=== PATIENT | female | born 1955 | race African-American/Black ===

== ENCOUNTER 2017-10-26 21:49 | Emergency (ER) | payer OTHER ==
[~2017-10-26] VITALS: Ht 167.6 cm; Wt 72.6 kg
--- NOTE | 2017-10-26 22:09 | PHYS DOC ---
Past Medical History Past Medical History: Hypertension, Stroke Additional Past Medical Histor: Neuropathy to left arm Past Surgical History: Additional Information: None Alcohol Use: None Drug Use: None Adult General Chief Complaint Chief Complaint: CHEST PAIN HPI HPI 62-year-old female presents with report of acute on chronic left arm pain which shoots from her left shoulder/upper thoracic back to her hand which has been ongoing for 3 months status post "stroke". Patient was apparently diagnosed with neuropathic pain. Reports most recently pain has become worse. Denies any trauma. Denies chest pain. Denies shortness of air. Denies numbness. Denies pleuritic pain. Denies arm swelling or redness. Review of Systems Review of Systems Constitutional: Denies fever or chills [] Eyes: Denies change in visual acuity, redness, or eye pain [] HENT: Denies nasal congestion or sore throat [] Respiratory: Denies cough or shortness of breath [] Cardiovascular: Denies chest pain or palpitations GI: Denies abdominal pain, nausea, vomiting, or diarrhea [] : Denies dysuria or hematuria [] Musculoskeletal: Reports upper thoracic back pain and shooting left arm pain Integument: Denies rash or skin lesions [] Neurologic: Denies headache or sensory changes [] Complete systems were reviewed and found to be within normal limits, except as documented in this note. Current Medications Current Medications Current Medications Medications (Trade) Dose Ordered Sig/Celio Start Time Stop Time Status Last Admin Dose Admin Acetaminophen/ Hydrocodone Bitart (Lortab 5/325) 1 tab 1X ONCE 10/27/17 00:30 10/27/17 00:31 DC 10/27/17 00:27 1 TAB Aspirin (Jaime Aspirin) 325 mg 1X ONCE 10/26/17 23:00 10/26/17 23:01 DC 10/26/17 22:36 325 MG Fentanyl Citrate (Fentanyl 2ml Vial) 50 mcg 1X ONCE 10/26/17 23:00 10/26/17 23:01 DC 10/26/17 22:37 50 MCG Orphenadrine Citrate (Norflex) 60 mg 1X ONCE 10/26/17 23:00 10/26/17 23:01 DC 10/26/17 22:36 60 MG Allergies Allergies Allergies Coded Allergies Type Severity Reaction Last Updated Verified No Known Drug Allergies 10/26/17 No Physical Exam Physical Exam Constitutional: Well developed, well nourished, no acute distress, non-toxic appearance. [] HENT: Normocephalic, atraumatic, oropharynx moist Eyes: PERRL, EOMI, conjunctiva normal, no discharge. [] Neck: Normal range of motion, no midline tenderness, supple, no meningeal signs Cardiovascular: Heart rate regular rhythm, capillary refill less than 2 seconds Lungs & Thorax: Bilateral breath sounds clear to auscultation [] Abdomen: Soft, no tenderness] Skin: Warm, dry, no erythema, no rash. [] Back: Left paraspinal thoracic tenderness to palpation, no midline spinal tenderness noted. [] Extremities: No edema, pain to left arm with range of motion and light touch Neurologic: Alert and oriented X 3, normal motor function, normal sensory function, no focal deficits noted. [] Psychologic: Affect normal, judgement normal, mood normal. [] Current Patient Data Vital Signs Vital Signs Date Time Temp Pulse Resp B/P (MAP) Pulse Ox O2 Delivery O2 Flow Rate FiO2 10/27/17 00:30 80 18 157/82 (107) 98 Room Air 10/26/17 22:21 98.6 98.6 Lab Values Laboratory Tests Test 10/26/17 22:40 White Blood Count 10.4 x10^3/uL (4.0-11.0) Red Blood Count 4.16 x10^6/uL (3.50-5.40) Hemoglobin 13.2 g/dL (12.0-15.5) Hematocrit 38.0 % (36.0-47.0) Mean Corpuscular Volume 91 fL (79-100) Mean Corpuscular Hemoglobin 32 pg (25-35) Mean Corpuscular Hemoglobin Concent 35 g/dL (31-37) Red Cell Distribution Width 16.6 % (11.5-14.5) H Platelet Count 421 x10^3/uL (140-400) H Neutrophils (%) (Auto) 61 % (31-73) Lymphocytes (%) (Auto) 20 % (24-48) L Monocytes (%) (Auto) 12 % (0-9) H Eosinophils (%) (Auto) 6 % (0-3) H Basophils (%) (Auto) 1 % (0-3) Neutrophils # (Auto) 6.3 x10^3uL (1.8-7.7) Lymphocytes # (Auto) 2.1 x10^3/uL (1.0-4.8) Monocytes # (Auto) 1.2 x10^3/uL (0.0-1.1) H Eosinophils # (Auto) 0.6 x10^3/uL (0.0-0.7) Basophils # (Auto) 0.1 x10^3/uL (0.0-0.2) Prothrombin Time 12.5 SEC (11.7-14.0) Prothrombin Time INR 1.0 (0.8-1.1) PTT 29 SEC (24-38) Sodium Level 141 mmol/L (136-145) Potassium Level 3.7 mmol/L (3.5-5.1) Chloride Level 107 mmol/L (98-107) Carbon Dioxide Level 27 mmol/L (21-32) Anion Gap 7 (6-14) Blood Urea Nitrogen 24 mg/dL (7-20) H Creatinine 0.7 mg/dL (0.6-1.0) Estimated GFR (Cockcroft-Gault) 103.3 BUN/Creatinine Ratio 34 (6-20) H Glucose Level 122 mg/dL (70-99) H Calcium Level 10.4 mg/dL (8.5-10.1) H Magnesium Level 2.2 mg/dL (1.8-2.4) Total Bilirubin 0.3 mg/dL (0.2-1.0) Aspartate Amino Transferase (AST) 29 U/L (15-37) Alanine Aminotransferase (ALT) 48 U/L (14-59) Alkaline Phosphatase 113 U/L (46-116) Creatine Kinase 75 U/L (26-192) Creatine Kinase MB (Mass) 0.9 ng/mL (0.0-3.6) Creatine Kinase MB Relative Index 1.2 % (0-4) Troponin I Quantitative < 0.017 ng/mL (0.000-0.055) JH-Dyj-W-Type Natriuretic Peptide 137 pg/mL (0-124) H Total Protein 7.2 g/dL (6.4-8.2) Albumin 3.4 g/dL (3.4-5.0) Albumin/Globulin Ratio 0.9 (1.0-1.7) L Lipase 157 U/L (73-393) Laboratory Tests 10/26/17 22:40 Laboratory Tests 10/26/17 22:40 EKG EKG @2155 on 10/26/17: NSR at 82bpm, nonspecific t wave inversion I, aVL, V3-V6. NO ST elevation. Radiology/Procedures Radiology/Procedures CXR single view: (preliminary interpretation by ED physician) No acute process noted. Course & Med Decision Making Course & Med Decision Making Pertinent Labs and Imaging studies reviewed. (See chart for details) Patient presents with history of present illness and physical exam consistent for acute on chronic neuropathic pain to left arm. No obvious deformity noted. No history of trauma. Patient with some cardiac risk factors. EKG stable. Labs obtained and posted to chart. Initial troponin within normal limits. Chest x- ray clear. Pain addressed. Patient stable for discharge with outpatient follow- up with PCP. Discussed findings and plan with patient and family, who acknowledge understanding and agreement. Dragon Disclaimer Dragon Disclaimer This electronic medical record was generated, in whole or in part, using a voice recognition dictation system. Departure Departure Impression: Primary Impression: Left arm pain Additional Impression: Neuropathy Disposition: 01 HOME, SELF-CARE Condition: STABLE Referrals: SOPHIA RODRÍGUEZ MD Patient Instructions: Pain, Neuropathic Scripts Hydrocodone/Apap 5-325 (NORCO 5-325 TABLET) 1 Each Tablet 1 TAB PO PRN Q6HRS PRN for PAIN, #10 TAB 0 Refills Prov: JAGRUTI SHABAZZ DO 10/26/17 Orphenadrine Citrate (ORPHENADRINE CITRATE) 100 Mg Tablet.er 1 TAB PO BID PRN for MUSCLE PAIN, #14 TAB 0 Refills Prov: JAGRUTI SHABAZZ DO 10/26/17 Problem Qualifiers JAGRUTI SHABAZZ DO Oct 26, 2017 22:09
[2017-10-26 22:48] LABS: BASO # 0.1 x10^3/uL (0.0-0.2); BASO % 1 % (0-3); EOS # 0.6 x10^3/uL (0.0-0.7); EOS % 6 % (0-3); HEMOGLOBIN 13.2 g/dL (12.0-15.5); LYMPH # 2.1 x10^3/uL (1.0-4.8); LYMPH % 20 % (24-48); MEAN CORPUSCULAR HEMOGLOBIN 32 pg (25-35); MEAN CORPUSCULAR HGB CONC 35 g/dL (31-37); MEAN CORPUSCULAR VOLUME 91 fL (79-100); MONO # 1.2 x10^3/uL (0.0-1.1); MONO % 12 % (0-9); NEUT # 6.3 x10^3uL (1.8-7.7); NEUT % 61 % (31-73); PLATELET COUNT 421 x10^3/uL (140-400); RED BLOOD COUNT 4.16 x10^6/uL (3.50-5.40); RED CELL DISTRIBUTION WIDTH 16.6 % (11.5-14.5); WHITE BLOOD COUNT 10.4 x10^3/uL (4.0-11.0)
[2017-10-26 22:58] LABS: CALCIUM 10.4 mg/dL (8.5-10.1); CREATININE 0.7 mg/dL (0.6-1.0); GFR 103.3; POTASSIUM 3.7 mmol/L (3.5-5.1)
[2017-10-26] MEDS ORDERED: ASPIRIN 325 MG TABLET PO ONE (23:00)
[2017-10-26] MEDS ORDERED: ORPHENADRINE CITRATE 60 MG/2 ML VIAL. IV ONE (23:00)
[2017-10-26] MEDS ORDERED: fentaNYL PF VIAL 100 MCG/2 ML VIAL IV ONE (23:00)
[2017-10-26 23:01] LABS: PROTHROMBIN TIME PATIENT 12.5 SEC (11.7-14.0)
[2017-10-26 23:05] LABS: ALBUMIN 3.4 g/dL (3.4-5.0); ALBUMIN/GLOBULIN RATIO 0.9 (1.0-1.7); MAGNESIUM 2.2 mg/dL (1.8-2.4); TOTAL BILIRUBIN 0.3 mg/dL (0.2-1.0); TOTAL PROTEIN 7.2 g/dL (6.4-8.2)
[2017-10-26] MEDS ORDERED: HYDR-971 PO (23:45)
[2017-10-26] MEDS ORDERED: ORPH100T PO (23:45)
[2017-10-27 00:30] VITALS: BP 157/82
[2017-10-27] MEDS ORDERED: HYDROcodone/APAP 5/325MG 1 TAB TABLET PO ONE (00:30)
--- NOTE | 2017-10-27 02:06 | RAD ---
PORTABLE CHEST 1V Clinical Indication: chest pain with radiation down left arm Comparison: None. Findings: The cardiomediastinal silhouette is normal. Cephalization of pulmonary vasculature. There are very faint Gee B lines on the right. Lungs are clear. There is no pneumothorax. No pleural effusion is appreciated. No acute bone abnormality. IMPRESSION: Cephalization of pulmonary vasculature suggests early pulmonary edema. Electronically signed by: Solomon Chaudhary MD (10/27/2017 2:03 AM) [id number]
--- NOTE | 2017-10-27 12:40 | EKG ---
[facility] [address] [place] [address] Test Date: 2017-10-26 Test Time: 21:55:29 Pat Name: LOREE MTZ Department: Room: Gender: Female Under Trimmer: : 1955 Requested By: JAGRUTI SHABAZZ Order Number: [id number] Reading MD: Vitaliy Estevez MD Measurements Intervals [place] Rate: 82 P: 57 DC: 130 QRS: 51 QRSD: 72 T: 132 QT: 338 QTc: 398 Interpretive Statements SINUS RHYTHM LVH WITH REPOLARIZATION ABNORMALITY Electronically Signed On 10-30-2017 11:57:55 CDT by Vitaliy Estevez MD
== END 2017-10-27 00:41 | disposition home or self-care (01) ==
LOC: ER 21:49
DX: G89.29 Other chronic pain (principal); M79.602 Pain in left arm; G62.9 Polyneuropathy, unspecified; I10 Essential (primary) hypertension; Z86.73 Personal history of transient ischemic attack (TIA), and cerebral infarction without residual deficits
CPT/HCPCS: 36415; 71045; 80053; 82553; 83690; 83735; 83880; 84484; 85025; 85610; 85730; 93005; 96374; 96375; 99285; J2360; J3010

== ENCOUNTER → 2018-12-02 | Outpatient (CLI) | payer MEDICAID, OTHER ==
[~2018-12-02] MED LIST: HYDR-3164 PO; ORPH100T PO; ZOLPIDEM 5 MG TABLET. PO ONE
--- NOTE | 2018-12-11 10:25 | SLEEP ---
DATE OF STUDY: 12/02/2018 SLEEP STUDY ATTENDING PHYSICIAN: Dr. Roni Irving. The patient is a 63 years old who weighs 220 pounds with a BMI of 35. The patient's Temple score was 13. The patient underwent diagnostic sleep study performed at [facility]. During the night study, the patient spent 423 minutes in bed and slept for 330 minutes with a sleep efficiency of 78%. Sleep latency was 40 minutes with an absent REM sleep. Sleep architecture showed normal stage 1 sleep, increased stage 2 sleep, absent REM sleep and normal slow wave sleep. During the night study, the patient had 7 obstructive apneas, 8 mixed apneas, 1 central apnea and 53 hypopneas. The patient's apnea-hypopnea index was 13 per hour with a supine index of 13 per hour. REM sleep was not observed. EKG monitoring revealed a mean heart rate of 87 beats per minute, no sustained arrhythmias observed. Nocturnal oximetry study revealed a mean oxygen saturation of 96% with the lowest of 86%. Only 0.6% of time oxygen saturation remained less than 90%. No clinically significant PLM seen. Due to low AHI, the patient did not meet the split night criteria for CPAP initiation. IMPRESSION: 1. Mild sleep apnea-hypopnea syndrome at an AHI of 13 per hour. Absence of REM sleep can underestimate the severity of sleep apnea. 2. No clinically significant nocturnal hypoxia. 3. No clinically significant periodic limb movements. RECOMMENDATIONS: 1. The patient is clinically symptomatic with an Temple score of 13. Consider treatment of the patient's sleep apnea with either CPAP or oral appliance to see clinical improvement in her symptoms. 2. Once the patient is optimally treated, then follow up in 4-6 weeks to assess compliance with treatment and to document clinical improvement. 3. Weight loss is strongly advised. 4. Avoid READINESS PARAPROFESSIONAL depressants. 5. Cautioned regarding driving until symptoms of sleep apnea resolve with the above recommendations. CAROLE MORAN MD DR: SONDRA/nts JOB#: [id number] / [id number] Roni Garvin
== END | disposition home or self-care (01) ==
LOC: SLPLAB 18:05
PROVIDERS: ATTEND Family Medicine
DX: G47.33 Obstructive sleep apnea (adult) (pediatric) (principal)
CPT/HCPCS: 95810